=== PATIENT | female | born 1985 | race Two or more races ===

== ENCOUNTER 2025-05-16 16:45 | Inpatient (IN) | payer OTHER ==
[~2025-05-16] VITALS: Ht 160 cm; Wt 100.7 kg
[2025-05-16 17:29] VITALS: BP 138/74
[2025-05-16 18:13] LABS: BASO % 0.6 % (0.1-1.2); EOS # 0.46 (0.04-0.54); EOS % 4.4 % (0.7-7.0); LYMPH # 2.20 (1.18-3.74); LYMPH % 21.1 % (19.3-53.1); MEAN PLATELET VOLUME 9.00 fl (9.4-12.4); MONO # 0.72 (0.24-0.82); MONO % 6.9 % (4.7-12.5); NEUT # 6.98 (1.56-6.13); NEUT % 66.9 % (34.0-71.1); RED CELL DISTRIBUTION WIDTH 19.3 % (11.6-14.4)
[2025-05-16] MEDS ORDERED: MISOPROSTOL 100 MCG TABLET ONE (18:14)
[2025-05-16] MEDS ORDERED: PRENATA CHEWAB1 EACH PO (18:16)
[2025-05-16] MEDS ORDERED: IRON18 M1 PO (18:17)
[2025-05-16] MEDS ORDERED: MORPHINE SULFATE 4 MG/ML CARTRIDGE IV PRN (18:45)
[2025-05-16] MEDS ORDERED: MISOPROSTOL 100 MCG TABLET VAG ONE (18:45)
[2025-05-16 18:57] LABS: INR 0.99
[2025-05-16 19:02] LABS: ALT/SGPT 22.0 U/L (12-78); AST/SGOT 15.0 U/L (15-37); BILIRUBIN TOTAL 0.45 mg/dL (0.3-1.2); BUN CREA RATIO 16.0 (7.0-25.0); CREATININE SERUM 0.56 mg/dL (0.55-1.02); GFR 119.3; GLOBULINA 4.4 G/DL (2.4-3.5); GLUCOSE FASTING 105.0 mg/dL (65-100); OSMOLALITY SERUM 280.0 MOSM/KG (275-295)
[2025-05-16 23:20] VITALS: BP 138/68; O2SAT 100
[2025-05-17] MEDS ORDERED: OXYTOCIN 20 UNITS/1000ML RL PIGGYBAG IV ONE (02:42)
[2025-05-17 03:19] VITALS: BP 106/54
[2025-05-17] MEDS ORDERED: MISOPROSTOL 100 MCG TABLET ONE (03:33)
[2025-05-17] MEDS ORDERED: CEFOXITIN SODIUM 2,000 MG VIAL IV ONE (04:30)
[2025-05-17] MEDS ORDERED: POVIDONE-IODINE 118 ML BOTT TOP ONE (04:32)
[2025-05-17] MEDS ORDERED: MISOPROSTOL 100 MCG TABLET BUCAL ONE (04:45)
[2025-05-17 04:59] VITALS: BP 147/74
[2025-05-17 05:15] VITALS: BP 133/53
[2025-05-17] MEDS ORDERED: MISOPROSTOL 100 MCG TABLET PO ONE (05:15)
[2025-05-17] MEDS ORDERED: ACETAMINOPHEN WITH CODEINE 1 UDTAB TABLET PO PRN (05:15)
[2025-05-17 08:04] VITALS: BP 133/59
[2025-05-17] MEDS ORDERED: METHYLERGONOVINE MALEATE 0.2 MG TABLET PO SCH (09:00)
[2025-05-17 16:52] VITALS: BP 124/81; O2SAT 96
[2025-05-18 01:02] VITALS: BP 114/72; O2SAT 100
[2025-05-18 07:30] VITALS: BP 108/72
[2025-05-18] MEDS ORDERED: HYDROXYZINE HCL50 MG PO (09:27)
== END 2025-05-18 13:12 | disposition home or self-care (01) | DRG 807 ==
LOC: LDR 16:45 → SURH 05-17 05:43
PROVIDERS: ADMIT Obstetrics & Gynecology; ATTEND Obstetrics & Gynecology
PROC: 3E0P7VZ Introduction of Hormone into Female Reproductive, Via Natural or Artificial Opening (ICD-10-PCS; 2025-05-16)
PROC: 4A1HXCZ Monitoring of Products of Conception, Cardiac Rate, External Approach (ICD-10-PCS; 2025-05-16)
PROC: 10E0XZZ Delivery of Products of Conception, External Approach (ICD-10-PCS; principal; 2025-05-17)
PROC: 3E0DXGC Introduction of Other Therapeutic Substance into Mouth and Pharynx, External Approach (ICD-10-PCS; 2025-05-17)
PROC: 3E033VJ Introduction of Other Hormone into Peripheral Vein, Percutaneous Approach (ICD-10-PCS; 2025-05-17)
DX: O02.1 Missed abortion (principal); Z37.1 Single stillbirth; O43.892 Other placental disorders, second trimester; Z3A.17 17 weeks gestation of pregnancy